=== PATIENT | female | born 1995 | race Caucasian/White ===

== ENCOUNTER 2016-10-20 07:56 | Emergency (ER) | payer OTHER ==
[~2016-10-20] VITALS: Ht 149.9 cm; Wt 59.5 kg
[~2016-10-20 07:56] MED LIST: APAP/HYDROCODON1 T13 PO; COL100 PO
[2016-10-20 09:26] VITALS: BP 135/79
== END 2016-10-20 09:26 | disposition home or self-care (01) ==
LOC: ED 07:56
DX: J06.9 Acute upper respiratory infection, unspecified (principal); J02.9 Acute pharyngitis, unspecified; M79.1 Myalgia; Z88.6 Allergy status to analgesic agent

== ENCOUNTER 2017-08-29 22:19 | Emergency (ER) | payer OTHER ==
[2017-08-30 00:49] VITALS: BP 132/70
== END 2017-08-30 00:49 | disposition home or self-care (01) ==
LOC: ED 22:19
DX: S90.522A Blister (nonthermal), left ankle, initial encounter (principal); S90.521A Blister (nonthermal), right ankle, initial encounter; Z88.6 Allergy status to analgesic agent; X58.XXXA Exposure to other specified factors, initial encounter; Y93.89 Activity, other specified; Y92.89 Other specified places as the place of occurrence of the external cause; Y99.8 Other external cause status

== ENCOUNTER 2017-11-05 09:03 | Emergency (ER) | payer OTHER ==
[~2017-11-05] VITALS: Ht 149.9 cm; Wt 59.0 kg
[2017-11-05 09:06] VITALS: Ht 149.9 cm; Wt 59.0 kg
[2017-11-05 10:20] VITALS: BP 112/74
== END 2017-11-05 10:20 | disposition home or self-care (01) ==
LOC: ED 09:03
DX: J06.9 Acute upper respiratory infection, unspecified (principal)